=== PATIENT | male | born 1950 | race Two or more races ===

== ENCOUNTER 2016-10-22 00:06 | Emergency (ER) | payer OTHER ==
[~2016-10-22] VITALS: Ht 182.9 cm; Wt 98.0 kg
[2016-10-22 18:32] VITALS: BP 157/76
== END 2016-10-23 00:08 | disposition home or self-care (01) ==
LOC: ED 21:54
DX: F10.120 Alcohol abuse with intoxication, uncomplicated (principal)
CPT/HCPCS: 99283